=== PATIENT | male | born 1970 | race Caucasian/White ===

== ENCOUNTER → 2018-07-16 | Outpatient (CLI) | payer BC ==
--- NOTE | 2018-07-17 10:26 | PCVCIMAG ---
APPROVED REPORT Study performed: 07/16/2018 16:03:12 Exam: Stress Echocardiogram Indication: Abnormal EKG Patient Location: Echo lab Stress Nurse: Romina Randall RN Room #: 2 Status: routine Ht: 6 ft 0 in BP: 142/94 mmHg Rhythm: Bifascicular Block Medical History Medical History: HTN, Hyperlipidemia Cardiac Risk Factors: HTN, Hyperlipidemia, FHX of CAD Previous Cardiac Procedures: none Pretest Chest Pain Characteristics: No chest pain Exercise History: Physically active Procedure The patient underwent an Exercise Stress Test using the Chi Protocol. Blood pressure, heart rate, and EKG were monitored. An Echocardiogram was performed by recycling technician in four stages in quad fashion. At peak stress, four selected images were obtained and placed side by side with resting images for comparison. Stress Test Details Stress Test: Exercise stress testing was performed using a Chi protocol. HR Resting HR: 65 bpmMax Heart Rate (APMHR): 171 bpm Max HR Achieved: 151 bpmTarget HR (85% APMHR): 145 bpm % of APMHR: 88 Recovery HR: 90 bpm HR response to stress: Normal HR response to stress BP Resting BP: 142/94 mmHg Max BP: 220/90 mmHg Recovery BP: 148/80 mmHg BP response to stress: Hypertensive response to stress-held Bystolic prior to test ECG Resting ECG: Sinus Rhythm, bifascicular block Stress ECG: Sinus Rhythm,bifascicular block ST Change: Non-ischemic Arrhythmia: Rare PVCs, couplet PVCs Recovery ECG: Sinus Rhythm,bifascicular block Recovery ST Change: Non-ischemic Recovery Arrhythmia: None Clinical Reason for Termination: Maximal effort Stress Symptoms: Fatigue Exercise duration: 12 min 31 sec Highest Stage Achieved: Stage 5: 5.0 mph at 18% grade. Exercise capacity: 15.4 METs Overall Exercise Capacity for Age: Good Scale: Active Angina Score: None No complications. Stress ECG Conclusion The patient exercised according to the [facility] protocol for 12:31 mins; achieving a work level of 15.4 METS. The resting heart rate of 65 bpm nasir to a maximum heart rate of 151 bpm. This value represent 88% of the maximal, age-predicted heart rate. The resting blood pressure of 142/94 mmHg, nasir to a maximum blood pressure of 220/90 mmHg. The exercise test was stopped due to fatigue . Pre-Stress Echo The resting Echocardiogram showed normal left ventricular contractility with an estimated Ejection Fraction of about 55-60%. Normal wall motion in all segments on baseline images. Post-Stress Echo The stress Echocardiogram showed normal left ventricular contractility with an estimated Ejection Fraction of about 65-70%. Normal augmentation of wall motion in all segments on post stress images. Clinical No clinical or ECG evidence for ischemia. Conclusion Clinical Response: Non-ischemic Exercise Capacity: Superior Stress ECG Response: Non-ischemic Stress Echo Images: Non-ischemic No clinical, EKG or echocardiographic evidence for ischemia. No echocardiographic evidence for exercise induced ischemia. Normal stress echocardiogram with maximal exercise stress. No prior study available for comparison. <Conclusion> No clinical, EKG or echocardiographic evidence for ischemia. No echocardiographic evidence for exercise induced ischemia. Normal stress echocardiogram with maximal exercise stress.
== END | disposition home or self-care (01) ==
LOC: PCVCIMAG 16:04
PROVIDERS: ATTEND Family Medicine
DX: I45.4 Nonspecific intraventricular block (principal); R94.31 Abnormal electrocardiogram [ECG] [EKG]; E78.5 Hyperlipidemia, unspecified; I10 Essential (primary) hypertension; Z82.49 Family history of ischemic heart disease and other diseases of the circulatory system
CPT/HCPCS: 93325; 93351

== ENCOUNTER → 2019-05-15 | Outpatient (CLI) | payer BC ==
--- NOTE | 2019-05-15 15:26 | PCVCIMAG ---
APPROVED REPORT Study performed: 05/15/2019 09:54:04 Exam: Stress Echocardiogram Indication: Chest pain, Abn EKG Patient Location: Echo lab Stress Nurse: Romina Randall RN Room #: 2 Status: routine Ht: 6 ft 0 in HR: 62 bpm BP: 128/84 mmHg Rhythm: Bifascicular block Medical History Medical History: Hyperlipidemia Medications: Bystolic, atorvastatin Cardiac Risk Factors: Hyperlipidemia, FHX of CAD Previous Cardiac Procedures: none Pretest Chest Pain Characteristics: Non-exertional Chest pain Exercise History: Physically active Procedure The patient underwent an Exercise Stress Test using the Chi Protocol. Blood pressure, heart rate, and EKG were monitored. An Echocardiogram was performed by renal technician in four stages in quad fashion. At peak stress, four selected images were obtained and placed side by side with resting images for comparison. Stress Test Details Stress Test: Exercise stress testing was performed using a Chi protocol. HR Resting HR: 62 bpmMax Heart Rate (APMHR): 170 bpm Max HR Achieved: 162 bpmTarget HR (85% APMHR): 144 bpm % of APMHR: 95 Recovery HR: 89 bpm HR response to stress: Normal HR response to stress BP Resting BP: 128/84 mmHg Max BP: 194/80 mmHg Recovery BP: 120/74 mmHg BP response to stress: Normal blood pressure response to stress. ECG Resting ECG: bifascicular block Stress ECG: bifascicular block ST Change: nondiagnostic Maximum ST Deviation: -1.55 mm Arrhythmia: occasional PVC Recovery ST Deviation: -2.1 mm Recovery Arrhythmia: occ pvcs Clinical Reason for Termination: Maximal effort Stress Symptoms: chest pain decreased with exercise Exercise duration: 12 min 42 sec Highest Stage Achieved: Stage 5: 5.0 mph at 18% grade. Exercise capacity: 15.9 METs Overall Exercise Capacity for Age: Excellent Scale: Active Angina Score: Non-Limiting No complications. Stress ECG Conclusion The patient exercised according to the [facility] protocol for 12:42 mins; achieving a work level of 15.90 METS. The resting heart rate of 62 bpm nasir to a maximum heart rate of 162 bpm. This value represent 95% of the maximal, age-predicted heart rate. The resting blood pressure of 128/84 mmHg, nasir to a maximum blood pressure of 194/80 mmHg. The exercise test was stopped due to fatigue. Carver Treadmill Score is 15.8 which is Low risk. Pre-Stress Echo The resting Echocardiogram showed normal left ventricular contractility with an estimated Ejection Fraction of about 55-60%. Normal wall motion in all segments on baseline images. Post-Stress Echo The stress Echocardiogram showed normal left ventricular contractility with an estimated Ejection Fraction of about 65-70%. Normal augmentation of wall motion in all segments on post stress images. Clinical No clinical or ECG evidence for ischemia. Conclusion Clinical Response: Non-ischemic Exercise Capacity: Superior Stress ECG Response: Indeterminant Stress Echo Images: Non-ischemic No echocardiographic evidence for exercise induced ischemia. No clinical, EKG or echocardiographic evidence for ischemia. Normal stress echocardiogram with maximal exercise stress. Normal color doppler. No regurgitation or stenosis present on pulmonic, mitral, tricuspid or aortic valves. <Conclusion> No echocardiographic evidence for exercise induced ischemia. No clinical, EKG or echocardiographic evidence for ischemia. Normal stress echocardiogram with maximal exercise stress. Normal color doppler. No regurgitation or stenosis present on pulmonic, mitral, tricuspid or aortic valves.
== END | disposition home or self-care (01) ==
LOC: PCVCIMAG 09:49
PROVIDERS: ATTEND Internal Medicine Cardiovascular Disease
DX: R94.31 Abnormal electrocardiogram [ECG] [EKG] (principal); R07.9 Chest pain, unspecified
CPT/HCPCS: 93325; 93351